=== PATIENT | male | born 1950 | race Caucasian/White ===

== ENCOUNTER → 2017-08-29 | Outpatient (CLI) | payer OTHER ==
[~2017-08-29] MED LIST: ANAS1TAB34 PO; ASPI-1403 PO; ASPI-1471 PO; ATOR20TA65 PO; ATOR40TA24 PO; CEP500 PO; CLOP75TA43 PO; ESZ3PT PO; ESZO1TAB19 PO; FLU45SYR17 IM; HYDR-3078 PO; IBU800 PO; IBUP600T22 PO; LISI-362 PO; LISI5TAB25 PO; LOR5 PO; MULT-885 PO; MULT1TAB64 PO; TEST2.5G6 TD
== END ==
LOC: LAB 09:07
PROVIDERS: ATTEND Internal Medicine Hematology & Oncology
DX: D75.1 Secondary polycythemia (principal)
CPT/HCPCS: 36415; 85014

== ENCOUNTER → 2017-09-08 | Outpatient (CLI) | payer OTHER | LOC: LAB 11:21 | PROVIDERS: ATTEND Internal Medicine Hematology & Oncology | DX: D75.1 Secondary polycythemia (principal) | CPT/HCPCS: 36415; 85014; 99195 ==

== ENCOUNTER → 2017-12-30 | Outpatient (CLI) | payer OTHER ==
[2017-12-30 12:54] LABS: LDL CHOLESTEROL 55 mg/dl
== END ==
LOC: LAB 12:05
PROVIDERS: ATTEND Internal Medicine
DX: E78.00 Pure hypercholesterolemia, unspecified (principal)
CPT/HCPCS: 36415; 82040; 82247; 82310; 82374; 82435; 82465; 82565; 82947; 83718; 84075; 84132; 84155; 84295; 84450; 84460; 84478; 84520

== ENCOUNTER 2018-01-05 09:00 | Outpatient (RCR) | payer OTHER ==
[2017-10-14 09:05] VITALS: BP 183/95
[2017-10-14 09:30] VITALS: BP 154/93
[2018-01-05 09:06] VITALS: BP 170/78
[2018-01-05 10:08] LABS: PLATELET COUNT, AUTOMATED 188 K/uL (150-450)
--- NOTE | 2018-01-05 18:08 | ONCOLOGY FOLLOW UP NOTE ---
EVENT DATE: January 05, 2018 DIAGNOSES 1. Secondary erythrocytosis. 2. Androgen deficiency, on replacement therapy. 3. Sleep apnea. 4. Pulmonary hypertension. CHIEF COMPLAINT Patient is here today for followup of his secondary erythrocytosis. ONCOLOGY HISTORY Patient is 67-year-old male who was diagnosed with obstructive sleep apnea after sleep study done September 2006, and the patient has been maintained on CPAP. He was also found to have erythrocytosis and his erythropoietin level was high at 111 and ARIAS-2 mutation analysis was negative. It was thought that his secondary erythrocytosis was related to his sleep apnea and testosterone replacement therapy. The patient is maintained on frequent phlebotomies to control his hematocrit at reasonable level. CT chest, abdomen, and pelvis done on April 17, 2007 was negative for malignancy. Patient has one phlebotomy every month now. HISTORY OF PRESENT ILLNESS Patient is here today for followup of his secondary erythrocytosis from androgen supplement. He is complaining of some numbness in his right upper extremity after some injury to his right shoulder. PAST MEDICAL HISTORY 1. Obstructive sleep apnea. 2. Low ejection fraction by echocardiogram in September 2006 of 46%. 3. Testosterone deficiency, on replacement therapy. 4. Pulmonary hypertension. 5. Possible history of sarcoidosis. PAST SURGICAL HISTORY 1. Laparoscopic cholecystectomy for cholecystitis with associated pancreatitis in 2002. 2. Tonsillectomy as a child. 3. Pharyngeal resection for obstructive sleep apnea in December of 2006. SOCIAL HISTORY The patient is . He has two stepdaughters. 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 He denies any abuse of tobacco or drugs. He drinks about six drinks between beer and hard liquor per week. FAMILY HISTORY Negative for cancer or blood diseases. CURRENT MEDICATION 1. Lisinopril 5 mg. 2. Atorvastatin 40 mg daily. 3. Aspirin 81 mg daily. 4. Multivitamins once daily. ALLERGIES No known drug allergies. REVIEW OF SYSTEMS CONSTITUTIONAL: No appetite or weight change. No fever, chills or sweating. No recent infection. HEENT: Ears: No tinnitus or hearing problem. Nose: No nasal discharge or epistaxis. Throat: No sore throat or mouth ulcers. Eyes: No diplopia or visual changes. RESPIRATORY: No shortness of breath. No cough, expectoration or hemoptysis. CARDIOVASCULAR: No chest pain, orthopnea, or paroxysmal nocturnal dyspnea (PND) . No edema. No palpitations. GASTROINTESTINAL: No nausea or vomiting. No diarrhea or constipation. No change in bowel movements. No heartburn or swallowing difficulties. No abdominal pain. No jaundice. No hematemesis, melena or rectal bleeding. GENITOURINARY: No hematuria or dysuria. MUSCULOSKELETAL: No pain in the muscles, joints or bones. NEUROLOGICAL: Patient has some numbness in the right upper extremity after injury of the right shoulder. No tingling or numbness in the hands or feet. No headaches or convulsions. HEMATOLOGIC/LYMPHATIC: No bleeding or easy bruising. He has some weakness, tiredness, and fatigue sometime. No enlarged lymph nodes. SKIN: No skin rash or lumps. PSYCHIATRIC: No anxiety or depression. PHYSICAL EXAMINATION GENERAL: Looks stable. Well-developed, well-nourished, and in no acute distress. VITAL SIGNS: Blood pressure 170/78, pulse 63 per minute, respirations 16 per minute, temperature 98.3, pulse oximetry 90% on room air. HEENT: Head: Atraumatic. No sinus tenderness to palpation. Eyes: No icterus or conjunctivitis. Mouth and throat: No oral thrush or mucositis. NECK: Supple. No cervical or supraclavicular lymphadenopathy. LUNGS: Clear to auscultation and percussion bilaterally. HEART: Regular rate and rhythm. No gallops, murmurs, clicks or rubs. ABDOMEN: Soft and lax. No tenderness. No hepatosplenomegaly. No masses. EXTREMITIES: No cyanosis, clubbing or edema. LYMPHATICS: No peripheral lymphadenopathy. NEUROLOGICAL: Conscious, alert and oriented times three. No focal motor or sensory deficits. PSYCHIATRIC: Mood and affect appear normal. SKIN: No skin rash, bruise or purpuric eruption. DIAGNOSTIC DATA CBC showed white count 6.6, hemoglobin 18.6, hematocrit 62.7%, MCV 77.3, platelet 252,000. ASSESSMENT 1. Secondary erythrocytosis, most probably due to obstructive sleep apnea and testosterone replacement therapy. His erythropoietin level was high at 111 and the JAK2 mutation analysis was negative. CT chest, abdomen and pelvis April 27, 2010 came back negative for malignancy. The patient was diagnosed with secondary erythrocytosis in April 2007. He requires frequent phlebotomies. His last phlebotomy was on December 23, 2017, and his current hematocrit is still high at 62.7%. I am planning to proceed with phlebotomy weekly until his hematocrit is below 50%. I am planning to see him this time in three months with CBC. 2. Testosterone deficiency, on replacement therapy. 3. Sleep apnea. 4. Pulmonary hypertension. PLAN 1. Phlebotomize 500 mL of blood on a weekly basis until hematocrit is below 50% . 2. CBC to be checked weekly. 3. Patient to return in three months with CBC. 4. Patient to contact us for any new concern or complaints. BEAN
== END 2018-01-10 09:59 | disposition home or self-care (01) ==
LOC: ONC 09:00
PROVIDERS: ATTEND Internal Medicine Hematology
DX: D75.1 Secondary polycythemia (principal); E29.1 Testicular hypofunction; G47.30 Sleep apnea, unspecified; I27.20 Pulmonary hypertension, unspecified; R53.1 Weakness; R53.83 Other fatigue
CPT/HCPCS: 85014; 85025; 99195; 99212

== ENCOUNTER → 2018-01-18 | Outpatient (CLI) | payer OTHER | LOC: LAB 07:38 | PROVIDERS: ATTEND Family Medicine | DX: E34.9 Endocrine disorder, unspecified (principal); N41.9 Inflammatory disease of prostate, unspecified | CPT/HCPCS: 36415; 84153; 84270; 84403 ==

== ENCOUNTER → 2018-04-13 | Outpatient (RCR) | payer OTHER ==
[2018-01-19 11:07] VITALS: BP 166/84
[2018-01-19 11:18] LABS: PLATELET COUNT, AUTOMATED 221 K/uL (150-450)
[2018-01-26 11:21] LABS: PLATELET COUNT, AUTOMATED 199 K/uL (150-450)
[2018-01-26 11:47] VITALS: BP 146/83
[2018-02-03 13:17] VITALS: BP 129/74
[2018-02-03 13:30] LABS: PLATELET COUNT, AUTOMATED 229 K/uL (150-450)
[2018-02-09 11:16] LABS: PLATELET COUNT, AUTOMATED 243 K/uL (150-450)
[2018-02-09 15:06] VITALS: BP 140/68
[2018-02-16 11:15] VITALS: BP 146/67
[2018-02-23 13:56] VITALS: BP 140/66
[2018-03-02 11:14] VITALS: BP 145/64
[2018-03-02 11:24] LABS: PLATELET COUNT, AUTOMATED 270 K/uL (150-450)
[2018-03-09 08:19] LABS: PLATELET COUNT, AUTOMATED 259 K/uL (150-450)
[2018-03-09 08:25] VITALS: BP 140/87
[2018-03-16 11:21] LABS: PLATELET COUNT, AUTOMATED 267 K/uL (150-450)
[2018-03-16 11:26] VITALS: BP 138/72
[2018-03-23 11:22] LABS: PLATELET COUNT, AUTOMATED 275 K/uL (150-450)
[2018-03-30 11:26] LABS: PLATELET COUNT, AUTOMATED 258 K/uL (150-450)
[2018-04-06 11:15] LABS: PLATELET COUNT, AUTOMATED 248 K/uL (150-450)
[2018-04-06 11:17] VITALS: BP 154/88
[2018-04-13 08:00] VITALS: BP 167/87
[2018-04-13 08:04] LABS: PLATELET COUNT, AUTOMATED 264 K/uL (150-450)
[2018-04-13 08:55] VITALS: BP 147/87
--- NOTE | 2018-04-13 08:58 | EL-TARABILY ONCOLOGY NOTE ---
EVENT DATE: April 13, 2018 DIAGNOSES 1. Secondary erythrocytosis. 2. Androgen deficiency, on replacement therapy. 3. Sleep apnea. 4. Pulmonary hypertension. CHIEF COMPLAINT Patient is here today for followup of his secondary erythrocytosis. ONCOLOGY HISTORY Patient is 67-year-old male who was diagnosed with obstructive sleep apnea after sleep study done September 2006, and the patient has been maintained on CPAP. He was also found to have erythrocytosis and his erythropoietin level was high at 111 and ARIAS-2 mutation analysis was negative. It was thought that his secondary erythrocytosis was related to his sleep apnea and testosterone replacement therapy. The patient is maintained on frequent phlebotomies to control his hematocrit at reasonable level. CT chest, abdomen, and pelvis done on April 17, 2007 was negative for malignancy. Patient has one phlebotomy every month now. HISTORY OF PRESENT ILLNESS Patient is here today for followup of his secondary erythrocytosis. He is doing fine currently and he is totally asymptomatic today. PAST MEDICAL HISTORY 1. Obstructive sleep apnea. 2. Low ejection fraction by echocardiogram in September 2006 of 46%. 3. Testosterone deficiency, on replacement therapy. 4. Pulmonary hypertension. 5. Possible history of sarcoidosis. PAST SURGICAL HISTORY 1. Laparoscopic cholecystectomy for cholecystitis with associated pancreatitis in 2002. 2. Tonsillectomy as a child. 3. Pharyngeal resection for obstructive sleep apnea in December of 2006. SOCIAL HISTORY The patient is . He has two stepdaughters. 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 He denies any abuse of tobacco or drugs. He drinks about six drinks between beer and hard liquor per week. FAMILY HISTORY Negative for cancer or blood diseases. CURRENT MEDICATION 1. Lisinopril 5 mg. 2. Atorvastatin 40 mg daily. 3. Aspirin 81 mg daily. 4. Multivitamins once daily. ALLERGIES No known drug allergies. REVIEW OF SYSTEMS CONSTITUTIONAL: No appetite or weight change. No fever, chills or sweating. No recent infection. HEENT: Ears: No tinnitus or hearing problem. Nose: No nasal discharge or epistaxis. Throat: No sore throat or mouth ulcers. Eyes: No diplopia or visual changes. RESPIRATORY: No shortness of breath. No cough, expectoration or hemoptysis. CARDIOVASCULAR: No chest pain, orthopnea, or paroxysmal nocturnal dyspnea (PND). No edema. No palpitations. GASTROINTESTINAL: No nausea or vomiting. No diarrhea or constipation. No change in bowel movements. No heartburn or swallowing difficulties. No abdominal pain. No jaundice. No hematemesis, melena or rectal bleeding. GENITOURINARY: No hematuria or dysuria. MUSCULOSKELETAL: No pain in the muscles, joints or bones. NEUROLOGICAL: Patient has some numbness in the right upper extremity after injury of the right shoulder. No tingling or numbness in the hands or feet. No headaches or convulsions. HEMATOLOGIC/LYMPHATIC: No bleeding or easy bruising. He has some weakness, tiredness, and fatigue sometime. No enlarged lymph nodes. SKIN: No skin rash or lumps. PSYCHIATRIC: No anxiety or depression. PHYSICAL EXAMINATION GENERAL: Looks stable. Well-developed, well-nourished, and in no acute distress. VITAL SIGNS: Blood pressure 167/87, pulse 55 per minute, respirations 16 per minute, temperature 98, pulse oximetry 94% on room air. HEENT: Head: Atraumatic. No sinus tenderness to palpation. Eyes: No icterus or conjunctivitis. Mouth and throat: No oral thrush or mucositis. NECK: Supple. No cervical or supraclavicular lymphadenopathy. LUNGS: Clear to auscultation and percussion bilaterally. HEART: Regular rate and rhythm. No gallops, murmurs, clicks or rubs. ABDOMEN: Soft and lax. No tenderness. No hepatosplenomegaly. No masses. EXTREMITIES: No cyanosis, clubbing or edema. LYMPHATICS: No peripheral lymphadenopathy. NEUROLOGICAL: Conscious, alert and oriented times three. No focal motor or sensory deficits. PSYCHIATRIC: Mood and affect appear normal. SKIN: No skin rash, bruise or purpuric eruption. DIAGNOSTIC DATA CBC showed white count 5.9, hemoglobin 16.8, hematocrit 53.5, red blood cell 7.14, MCV 74.9, platelet 264. ASSESSMENT 1. Secondary erythrocytosis, most probably due to obstructive sleep apnea and testosterone replacement therapy. His erythropoietin level was high at 111 and the JAK2 mutation analysis was negative. CT chest, abdomen and pelvis April 27, 2010 came back negative for malignancy. The patient was diagnosed with secondary erythrocytosis in April 2007. He requires frequent phlebotomies because of his testosterone replacement therapy. I am planning to proceed with his phlebotomy today as his hematocrit is 53.5% and the target for phlebotomy in his case is hematocrit above 50%. I am planning to check his CBC every month and I will proceed with phlebotomy if hematocrit above 50% and I will see him again in three months with CBC. The patient currently is doing very well and he is totally asymptomatic. 2. Testosterone deficiency, on replacement therapy. 3. Sleep apnea. 4. Pulmonary hypertension. PLAN 1. Phlebotomize 500 mL of blood whenever his hematocrit above 50%. 2. CBC to be checked monthly. 3. Patient to return in three months with CBC. 4. Patient to contact us for any new concern or complaints. BEAN
== END ==
LOC: ONC 01-11 09:05 → SPU 01-19 10:56
PROVIDERS: ATTEND Internal Medicine Hematology
DX: D75.1 Secondary polycythemia (principal); G47.30 Sleep apnea, unspecified; I27.20 Pulmonary hypertension, unspecified; Z79.899 Other long term (current) drug therapy
CPT/HCPCS: 36415; 85025; 85027; 99195; 99212

== ENCOUNTER → 2018-05-25 | Outpatient (CLI) | payer OTHER ==
[~2018-05-25] MED LIST changes: +DOXY-181 PO; +TAMS0.4C70 PO
== END ==
LOC: LAB 10:05
PROVIDERS: ATTEND Physician Assistant
DX: E34.9 Endocrine disorder, unspecified (principal); N41.9 Inflammatory disease of prostate, unspecified
CPT/HCPCS: 36415; 82670; 84153; 84270; 84403; 87088

== ENCOUNTER → 2018-06-08 | Outpatient (CLI) | payer OTHER ==
[2018-06-08 10:19] LABS: LDL CHOLESTEROL 52 mg/dl
== END ==
LOC: LAB 09:04
PROVIDERS: ATTEND Internal Medicine
DX: E78.00 Pure hypercholesterolemia, unspecified (principal)
CPT/HCPCS: 36415; 82040; 82247; 82310; 82374; 82435; 82465; 82565; 82947; 83718; 84075; 84132; 84155; 84295; 84450; 84460; 84478; 84520

== ENCOUNTER 2018-07-21 08:00 | Outpatient (RCR) | payer OTHER ==
[2018-05-11 10:13] VITALS: BP 149/74
[2018-05-11 10:29] LABS: PLATELET COUNT, AUTOMATED 256 K/uL (150-450)
[2018-06-08 13:06] VITALS: BP 168/86
[2018-06-08 13:45] LABS: PLATELET COUNT, AUTOMATED 233 K/uL (150-450)
[2018-07-13 08:11] VITALS: BP 181/87
[2018-07-13 08:18] LABS: PLATELET COUNT, AUTOMATED 230 K/uL (150-450)
[2018-07-13 09:05] VITALS: BP 165/89
[~2018-07-21 08:00] MED LIST changes: +TAMS0.4C25 PO
[2018-07-21 11:00] VITALS: BP 160/85
[2018-07-21] MEDS ORDERED: INFLUENZA VIRUS VAC 0.5ML SYR IM ONLY ONE (11:20)
--- NOTE | 2018-07-21 22:48 | EL-TARABILY ONCOLOGY NOTE ---
EVENT DATE: July 21, 2018 DIAGNOSES 1. Secondary erythrocytosis. 2. Androgen deficiency, on replacement therapy. 3. Sleep apnea. 4. Pulmonary hypertension. CHIEF COMPLAINT Patient is here today for followup of his secondary erythrocytosis. ONCOLOGY HISTORY Patient is a 67-year-old male who was diagnosed with obstructive sleep apnea after sleep study done September 2006, and the patient has been maintained on CPAP. He was also found to have erythrocytosis. His erythropoietin level was high at 111, and JAK2 mutation analysis was negative. It was thought that his secondary erythrocytosis was related to his sleep apnea and testosterone replacement therapy. The patient is maintained on frequent phlebotomies to control his hematocrit at a reasonable level. CT chest, abdomen, and pelvis done on April 17, 2007, was negative for malignancy. Patient has one phlebotomy every month now. HISTORY OF PRESENT ILLNESS Patient is here today for followup of his erythrocytosis. He is totally asymptomatic currently. PAST MEDICAL HISTORY 1. Obstructive sleep apnea. 2. Low ejection fraction by echocardiogram in September 2006 of 46%. 3. Testosterone deficiency, on replacement therapy. 4. Pulmonary hypertension. 5. Possible history of sarcoidosis. PAST SURGICAL HISTORY 1. Laparoscopic cholecystectomy for cholecystitis with associated pancreatitis in 2002. 2. Tonsillectomy as a child. 3. Pharyngeal resection for obstructive sleep apnea in December of 2006. SOCIAL HISTORY The patient is . He has two stepdaughters. 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 He denies any abuse of tobacco or drugs. He drinks about six drinks between beer and hard liquor per week. FAMILY HISTORY Negative for cancer or blood diseases. CURRENT MEDICATION 1. Lisinopril 5 mg. 2. Atorvastatin 40 mg daily. 3. Aspirin 81 mg daily. 4. Multivitamins once daily. ALLERGIES No known drug allergies. REVIEW OF SYSTEMS CONSTITUTIONAL: No appetite or weight change. No fever, chills, or sweating. No recent infection. HEENT: Ears: No tinnitus or hearing problem. Nose: No nasal discharge or epistaxis. Throat: No sore throat or mouth ulcers. Eyes: No diplopia or visual changes. RESPIRATORY: No shortness of breath. No cough, expectoration, or hemoptysis. CARDIOVASCULAR: No chest pain, orthopnea, or paroxysmal nocturnal dyspnea (PND). No edema. No palpitations. GASTROINTESTINAL: No nausea or vomiting. No diarrhea or constipation. No change in bowel movements. No heartburn or swallowing difficulties. No abdominal pain. No jaundice. No hematemesis, melena, or rectal bleeding. GENITOURINARY: No hematuria or dysuria. MUSCULOSKELETAL: No pain in the muscles, joints, or bones. NEUROLOGIC: No tingling or numbness in the hands or feet. No headaches or convulsions. HEMATOLOGIC/LYMPHATIC: No bleeding or easy bruising. No weakness or fatigue. No enlarged lymph nodes. SKIN: No skin rash or lumps. PSYCHIATRIC: No anxiety or depression. PHYSICAL EXAMINATION GENERAL: Looks stable. Well developed, well nourished, and in no acute distress. VITAL SIGNS: Blood pressure 160/85, pulse 73 per minute, respirations 16 per minute, temperature 98.6, pulse ox 91% on room air. HEENT: Head: Atraumatic. No sinus tenderness to palpation. Eyes: No icterus or conjunctivitis. Mouth and Throat: No oral thrush or mucositis. NECK: Supple. No cervical or supraclavicular lymphadenopathy. LUNGS: Clear to auscultation and percussion bilaterally. HEART: Regular rate and rhythm. No gallops, murmurs, clicks, or rubs. ABDOMEN: Soft and lax. No tenderness. No hepatosplenomegaly. No masses. EXTREMITIES: No cyanosis, clubbing, or edema. LYMPHATICS: No peripheral lymphadenopathy. NEUROLOGIC: Conscious, alert, and oriented times three. No focal motor or sensory deficits. PSYCHIATRIC: Mood and affect appear normal. SKIN: No skin rash, bruise, or purpuric eruption. DIAGNOSTIC DATA CBC showed white count 6.8, hemoglobin 17.2, hematocrit 55.2, platelets 230,000. ASSESSMENT 1. Secondary erythrocytosis, most probably due to obstructive sleep apnea and testosterone replacement therapy. His erythropoietin level was high at 111, and JAK2 mutation analysis was negative. CT chest, abdomen, and pelvis April 27, 2010, came back negative for malignancy. The patient was diagnosed with secondary erythrocytosis April 2007. He requires frequent phlebotomies because of the testosterone replacement therapy. He received a phlebotomy recently for a hematocrit of 55.2%. I am planning to continue to monitor his CBC on monthly interval, and I will proceed with phlebotomy if the hematocrit is above 50% as the patient is symptomatic from erythrocytosis if the hematocrit is above 50%. I am planning to see him again in six months with CBC. 2. Testosterone deficiency, on replacement therapy. 3. Sleep apnea. 4. Pulmonary hypertension. PLAN 1. Phlebotomize 500 mL of blood whenever the hematocrit is above 50%. 2. CBC to be checked monthly. 3. Patient to return in six months with CBC. 4. Patient to contact us for any new concern or complaints. BEAN
== END 2018-07-28 16:14 | disposition home or self-care (01) ==
LOC: ONC 08:00
PROVIDERS: ATTEND Internal Medicine Hematology
DX: D75.1 Secondary polycythemia (principal); Z23 Encounter for immunization; E29.1 Testicular hypofunction; G47.30 Sleep apnea, unspecified; I27.0 Primary pulmonary hypertension
CPT/HCPCS: 36415; 85025; 90471; 90674; 99195; 99212

== ENCOUNTER 2018-08-10 08:27 | Outpatient (RCR) | payer OTHER ==
[2018-08-10 08:31] VITALS: BP 152/76
[2018-08-10 08:51] LABS: PLATELET COUNT, AUTOMATED 244 K/uL (150-450)
[2018-08-10 09:15] VITALS: BP 131/66
== END 2018-09-04 08:08 | disposition home or self-care (01) ==
LOC: ONC 08:27
PROVIDERS: ATTEND Internal Medicine Hematology
DX: D75.1 Secondary polycythemia (principal); Z23 Encounter for immunization; E29.1 Testicular hypofunction; G47.30 Sleep apnea, unspecified; I27.0 Primary pulmonary hypertension
CPT/HCPCS: 85025; 99195

== ENCOUNTER → 2018-10-10 | Outpatient (CLI) | payer OTHER | LOC: LAB 15:29 | PROVIDERS: ATTEND Physician Assistant | DX: E34.9 Endocrine disorder, unspecified (principal); N41.9 Inflammatory disease of prostate, unspecified | CPT/HCPCS: 36415; 82306; 82607; 82670; 84153; 84270; 84403 ==

== ENCOUNTER 2018-11-14 10:25 | Outpatient (RCR) | payer OTHER ==
[2018-09-15 13:58] LABS: PLATELET COUNT, AUTOMATED 242 K/uL (150-450)
[2018-10-13 09:09] VITALS: BP 153/69
[2018-10-13 09:19] LABS: PLATELET COUNT, AUTOMATED 230 K/uL (150-450)
[2018-10-13 09:48] VITALS: BP 131/73
[2018-11-14 10:47] VITALS: BP 131/77
[2018-11-14 11:06] LABS: PLATELET COUNT, AUTOMATED 232 K/uL (150-450)
[2018-11-14 11:28] VITALS: BP 125/63
== END 2018-12-14 ==
LOC: SPU 10:25
PROVIDERS: ATTEND Internal Medicine Hematology
DX: D75.1 Secondary polycythemia (principal)
CPT/HCPCS: 85025; 99195

== ENCOUNTER 2018-11-17 08:15 | Outpatient (RCR) | payer OTHER ==
--- NOTE | 2018-10-05 09:39 | PT INITIAL EVALUATION ---
MEDICAL DIAGNOSIS: Right Shoulder RTC Tear TREATMENT DIAGNOSIS: Right Shoulder RTC Tear DATE OF ONSET: 09/29/18 SUBJECTIVE: Steve Khan" is a 67 year old male presenting to physical therapy following recent onset of R shoulder pain. Pt reports that he has had pain on and off in the R shoulder over years but recently the pain seemed to be getting worse. Pt saw an orthopaedic MD on 09/29/18 secondary to pain levels of 4/10 and received a cortisone injection in the R shoulder joint. Since the injection, pt reports decreased pain at a 1-2/10 with ADL's but pain is increased with shoulder extension, reaching behind his back and shoveling snow. Pt denies any numbness or tingling in the R arm or neck or back pain. 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 Strength: Shoulder MMT (L,R): flexion: 4+/5, 5/5, abd: 5/5, 5/5, ER: 5/5, 4/5 with pain, IR: 5/5, 5/5, ext: 5/5, 5/5. Sensation: Pt reports no change in UE sensation Special Tests: Neer's, Horizontal Adduction, Drop Arm, IR liftoff (-), slight pain with Empty Can testing Other Objective Findings: QuickDASH Impairment: 11% ASSESSMENT: Steve Khan" shows signs and symptoms consistent with likely supraspinatus or infraspinatus RTC partial tear without rupture. Physical therapy is indicated for this patient to address the above listed deficits to improve function with ADL's. Short Term Goals In 3 weeks pt will improve AROM B to equal with good scapular mechanics for improved function with ADL's. In 6 weeks pt will increase B shoulder strength to 5/5 with all motions without pain for improved function with ADL's. In 6 weeks pt will improve QuickDASH score to 3% impairment or less for improved function with ADL's. Patient's Goals Decrease shoulder pain in R shoulder PLAN: Patient to be seen for Manual Therapy/STM/MET Strengthening/condition Ice/Heat Range of Motion Ultrasound Stretching Iontophoresis Neuromuscular Re-ed Electrical Stim Posture/Body mechanics Biofeedback Home Exercise Program Mech./Manual Traction Therapeutic Activities 2x/Week for 6 Weeks If you have any questions, comments, or concerns about this report or plan, please contact me at . Thank you, Hermelinda Solis, PT, DPT, CLT MTDD
--- NOTE | 2018-11-10 10:39 | PT PLAN OF CARE ---
Physician: Marcus Godinez MD Patient is being seen: 2x/Week Therapist: Hermelinda Solis, PT, DPT, CLT Medical Diagnosis: Right Shoulder RTC Tear Treatment Diagnosis: Right Shoulder RTC Tear Date of Onset: 09/29/18 Date of Initial Evaluation: 10/05/18 Date patient was last seen: 11/10/18 Number of treatments: 10 Number of cancellations/No shows: 0 INTERVENTIONS: Manual Therapy/STM/MET Strengthening/condition Ice/Heat Range of Motion Ultrasound Stretching Iontophoresis Neuromuscular Re-ed Electrical Stim Posture/Body mechanics Biofeedback Home Exercise Program Mech./Manual Traction Therapeutic Activities GOALS: In 3 weeks pt will improve AROM B to equal with good scapular mechanics for improved function with ADL's. MET In 6 weeks pt will increase B shoulder strength to 5/5 with all motions without pain for improved function with ADL's. In Progress In 6 weeks pt will improve QuickDASH score to 3% impairment or less for improved function with ADL's. MET PATIENT'S GOAL: Decrease shoulder pain in R shoulder Status of Patient's Goals: 2/3 MET 1/3 In Progress Patient Compliance: Excellent Prognosis: Good Reasons for continuing therapy: "Melvin" shows excellent progress in return in ROM and function with R UE. Pt reports that he no longer has pain in the R shoulder, but can tell it's not quite equal to the L UE. Pt shows lingering deficits in strength with ER remaining weaker but no longer painful and abduction slightly impaired. Pt shows significant improvement in scapulohumeral mechanics with decreased impingement B. Further PT to focus on lingering deficits in strength towards discharge with HEP to maintain function. Posture: Slight rounded shoulders with increased thoracic kyphosis ROM: Shoulder ROM (L,R): flexion: 150, 150, abd: 155, 155, ER: 80, 80, IR: full B. Strength: Shoulder MMT (L,R): flexion: 5/5, 5/5, abd: 5/5, 4+/5, ER: 5/5, 5/5-, IR: 5/5, 5/5, ext: 5/5, 5/5. Outcome Measures: QuickDASH Impairment: 2.27% Impairment If you have any questions, please feel free to contact me at [phone]. Thank you, Hermelinda Solis, PT, DPT, CLT MTDD
--- NOTE | 2018-11-17 13:54 | PT PLAN OF CARE ---
Physician: Marcus Godinez MD Patient is being seen: 2x/Week Therapist: Hermelinda Solis, PT, DPT, CLT Medical Diagnosis: Right Shoulder RTC Tear Treatment Diagnosis: Right Shoulder RTC Tear Date of Onset: 09/29/18 Date of Initial Evaluation: 10/05/18 Date patient was last seen: 11/17/18 Number of treatments: 12 Number of cancellations/No shows: 0 INTERVENTIONS: Manual Therapy/STM/MET Strengthening/condition Ice/Heat Range of Motion Ultrasound Stretching Iontophoresis Neuromuscular Re-ed Electrical Stim Posture/Body mechanics Biofeedback Home Exercise Program Mech./Manual Traction Therapeutic Activities GOALS: In 3 weeks pt will improve AROM B to equal with good scapular mechanics for improved function with ADL's. MET In 6 weeks pt will increase B shoulder strength to 5/5 with all motions without pain for improved function with ADL's. MET In 6 weeks pt will improve QuickDASH score to 3% impairment or less for improved function with ADL's. MET PATIENT'S GOAL: Decrease shoulder pain in R shoulder Status of Patient's Goals: 3/3 MET Patient Compliance: Excellent Prognosis: Good Reasons for discharge from therapy: "Melvin" is to discharge from physical therapy at this time secondary to completion of 3/3 functional goals. Upon discharge pt shows excellent progress in return in ROM and function with R UE. Pt reports that he no longer has pain in the R shoulder, but remains to have slight stiffness and ache in the morning if he sleeps on it in a weird position. Strength shows good progress and pt is to continue with HEP upon discharge to continue with shoulder function. Posture: Slight rounded shoulders with increased thoracic kyphosis ROM: Shoulder ROM (L,R): flexion: 150, 150, abd: 155, 155, ER: 80, 80, IR: full B. Strength: Shoulder MMT (L,R): flexion: 5/5, 5/5, abd: 5/5, 5/5, ER: 5/5, 5/5-, IR: 5/5, 5/5, ext: 5/5, 5/5. Outcome Measures: QuickDASH Impairment: 2.27% Impairment If you have any questions, please feel free to contact me at [phone]. Thank you, Hermelinda Solis, PT, DPT, CLT [facility]
== END 2018-11-17 18:00 | disposition home or self-care (01) ==
LOC: PT 08:15
PROVIDERS: ATTEND Orthopaedic Surgery
DX: M75.101 Unspecified rotator cuff tear or rupture of right shoulder, not specified as traumatic (principal)
CPT/HCPCS: 97161

== ENCOUNTER → 2019-02-19 | Outpatient (CLI) | payer OTHER ==
[~2019-02-19] MED LIST changes: +WARF-1 PO
== END ==
LOC: LAB 08:37
PROVIDERS: ATTEND Physician Assistant
DX: E34.9 Endocrine disorder, unspecified (principal); N41.9 Inflammatory disease of prostate, unspecified
CPT/HCPCS: 36415; 82306; 82607; 82670; 84153; 84270; 84403

== ENCOUNTER 2019-02-23 13:47 | Outpatient (RCR) | payer OTHER ==
[2018-12-21 08:19] VITALS: BP 150/79
[2018-12-21 08:22] LABS: PLATELET COUNT, AUTOMATED 247 K/uL (150-450)
[2018-12-21 08:50] VITALS: BP 146/82
[2019-01-23 16:00] VITALS: BP 145/85
[2019-01-23 16:25] LABS: PLATELET COUNT, AUTOMATED 263 K/uL (150-450)
[2019-01-23 16:48] VITALS: BP 133/79
[2019-01-25 08:11] VITALS: BP 147/76
--- NOTE | 2019-01-26 02:43 | [facility] ONCOLOGY NOTE ---
EVENT DATE: January 25, 2019 DIAGNOSES 1. Secondary erythrocytosis. 2. Androgen deficiency, on replacement therapy. 3. Sleep apnea. 4. Pulmonary hypertension. CHIEF COMPLAINT Patient is here today for followup of his secondary erythrocytosis. ONCOLOGY HISTORY Patient is a 68-year-old male who was diagnosed with obstructive sleep apnea after sleep study done September 2006, and the patient has been maintained on CPAP. He was also found to have erythrocytosis. His erythropoietin level was high at 111, and JAK2 mutation analysis was negative. It was thought that his secondary erythrocytosis was related to his sleep apnea and testosterone replacement therapy. The patient is maintained on frequent phlebotomies to control his hematocrit at a reasonable level. CT chest, abdomen, and pelvis done on April 17, 2007, was negative for malignancy. Patient has one phlebotomy every month now. HISTORY OF PRESENT ILLNESS Patient is here today for followup of his secondary erythrocytosis secondary to testosterone supplement. Patient is doing very well currently, and he is totally asymptomatic. He has had a phlebotomy nearly every month, and his last phlebotomy was two days ago for a hematocrit of 51.6%. PAST MEDICAL HISTORY 1. Obstructive sleep apnea. 2. Low ejection fraction by echocardiogram in September 2006 of 46%. 3. Testosterone deficiency, on replacement therapy. 4. Pulmonary hypertension. 5. Possible history of sarcoidosis. PAST SURGICAL HISTORY 1. Laparoscopic cholecystectomy for cholecystitis with associated pancreatitis in 2002. 2. Tonsillectomy as a child. 3. Pharyngeal resection for obstructive sleep apnea in December of 2006. SOCIAL HISTORY The patient is . He has two stepdaughters. 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 He denies any abuse of tobacco or drugs. He drinks about six drinks between beer and hard liquor per week. FAMILY HISTORY Negative for cancer or blood diseases. CURRENT MEDICATIONS 1. Lisinopril 5 mg. 2. Atorvastatin 40 mg daily. 3. Aspirin 81 mg daily. 4. Multivitamins once daily. ALLERGIES No known drug allergies. REVIEW OF SYSTEMS CONSTITUTIONAL: No appetite or weight change. No fever, chills or sweating. No recent infection. HEENT: Ears: No tinnitus or hearing problem. Nose: No nasal discharge or epistaxis. Throat: No sore throat or mouth ulcers. Eyes: No diplopia or visual changes. RESPIRATORY: No shortness of breath. No cough, expectoration or hemoptysis. CARDIOVASCULAR: No chest pain, orthopnea, or paroxysmal nocturnal dyspnea (PND). No edema. No palpitations. GASTROINTESTINAL: No nausea or vomiting. No diarrhea or constipation. No change in bowel movements. No heartburn or swallowing difficulties. No abdominal pain. No jaundice. No hematemesis, melena or rectal bleeding. GENITOURINARY: No hematuria or dysuria. MUSCULOSKELETAL: No pain in the muscles, joints or bones. NEUROLOGICAL: No tingling or numbness in the hands or feet. No headaches or convulsions. HEMATOLOGIC/LYMPHATIC: No bleeding or easy bruising. No weakness or fatigue. No enlarged lymph nodes. SKIN: No skin rash or lumps. PSYCHIATRIC: No anxiety or depression. PHYSICAL EXAMINATION GENERAL: Looks stable. Well-developed, well-nourished, and in no acute distress. VITAL SIGNS: Blood pressure 147/76, pulse 65 per minute, respirations 16 per minute, temperature 98.4, pulse oximetry 96% on room air. HEENT: Head: Atraumatic. No sinus tenderness to palpation. Eyes: No icterus or conjunctivitis. Mouth and throat: No oral thrush or mucositis. NECK: Supple. No cervical or supraclavicular lymphadenopathy. LUNGS: Clear to auscultation and percussion bilaterally. HEART: Regular rate and rhythm. No gallops, murmurs, clicks or rubs. ABDOMEN: Soft and lax. No tenderness. No hepatosplenomegaly. No masses. EXTREMITIES: No cyanosis, clubbing or edema. LYMPHATICS: No peripheral lymphadenopathy. NEUROLOGICAL: Conscious, alert and oriented times three. No focal motor or sensory deficits. PSYCHIATRIC: Mood and affect appear normal. SKIN: No skin rash, bruise or purpuric eruption. DIAGNOSTIC DATA CBC showed white count 7000, hemoglobin 16.3, hematocrit 51.6, platelet 263,000, MCV 71.7. ASSESSMENT 1. Secondary erythrocytosis due to obstructive sleep apnea and testosterone replacement therapy. His erythropoietin was high at 111, and JAK2 mutation analysis was negative. CT chest, abdomen, and pelvis April 27, 2010, came back negative for malignancy. The patient was diagnosed with secondary erythrocytosis April 2007. He requires phlebotomy nearly every month because of the testosterone replacement therapy. At his current visit, hematocrit is 51.6 and the patient had already a phlebotomy two days ago. I am planning to continue checking his count every month with a phlebotomy to be indicated if hematocrit above 50%. I will see him in six months with CBC at that time. 2. Testosterone deficiency, on replacement therapy. 3. Sleep apnea. 4. Pulmonary hypertension. PLAN 1. Phlebotomize 500 mL of blood whenever the hematocrit is above 50%. 2. CBC to be checked monthly. 3. Patient to return in six months with CBC. 4. Patient to contact us for any new concern or complaints. BEAN
[2019-02-23 14:18] LABS: PLATELET COUNT, AUTOMATED 253 K/uL (150-450)
== END 2019-03-20 ==
LOC: SPU 13:47
PROVIDERS: ATTEND Internal Medicine Hematology
DX: D75.1 Secondary polycythemia (principal); G47.30 Sleep apnea, unspecified; I27.20 Pulmonary hypertension, unspecified
CPT/HCPCS: 36415; 85025; 99195; 99212